=== PATIENT | female | born 2000 | race Caucasian/White ===

== ENCOUNTER 2025-03-02 09:55 | Outpatient (AMB) | payer OTHER, SELFPAY ==
--- NOTE | 2025-03-02 09:57 | A.OFFPC_ITS ---
Vital Signs 03/02/25 10:02 Height 5 ft 7 in Weight 176 lb 4 oz BMI 27.6 BP 102/68 Blood Pressure Location Lt brachial Position Sitting Respiration 12 Pulse 69 Pulse Source Pulse Oximeter Temp 97.3 F Temp Source Oral Pulse Oximetry (%) 99 Oxygen Delivery Method Room Air Intake Visit Reasons: Est. Care Intake Note: New patient to establish care Arcade Attendant Required: No Allergies No Known Allergies Allergy (Verified 03/02/25 10:13) Medication List - Last Reconciled 03/02/25 by JOSIE Onofre-YUE docosahexaenoic acid ( DHA) mg PO Tobacco use date assessed: 03/02/25 Dental Screening Dental Screen Date: 03/02/25 Did you have a dental visit in the last 12 months?: Yes Did you have a dental problem in the last 6 months where you did not have access to dental care?: No Was dental information given to patient?: Patient has dentist HPI HPI Comments History of Present Illness Details 24 y/o F with Social: 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 Health Maintenance Tdap 2020 flu Pap - CAMPAIGN MANAGEMENT SPECIALIST [facility] - Dr Yanez Here today to est care and for a CPE No medical records available to me. Previous PCP was Manuel c/o skin tags on trunk. - Reports recent increase and spread of skin tags, with a notable incident of one skin tag bleeding after being grabbed during . Would like to see Derm - Vision has slightly worsened over the past two years, noted primarily when driving at night, and was initially diagnosed five years ago in [facility]. - Experiences a sensation of an echo in the right ear, occurring during jaw movement,started in the last week or 2. Short lived. No pain. - First noticed a plantar wart on the le ft foot since her first , with additional small warts developing nearby recently. Would like to see Podiatry - Documented high blood press ure immediately following delivery, was managed with medication and has since resolved. No further issues. - Describes stable mood and hormonal lev els with minor crying spells, improved significantly from previous experience. - Denies gestational dm. Social History - Occupation: Dental hygienist. - Family: , two children; a 2.5-y ear-old daughter and a recently born son. - Recently on maternity leave. - Reports a supportive family environmen t, especially with her daughter's adjustment to the new sibling. - Housing: Resides in [place]. Health Maintenance - Up-to-date on vaccinations as checked during hygiene school ([id number]). - Pap smear status unknown; plans to db ck during six-week visit. Review of Systems - Skin: Reports skin tags increasing in number and size . - Eyes/Vision: Reports vision decline, s lightly blurry vision, occasional need for distance vision glasses. - Ears: Reports clicking/echoing sensati on in right ear when clinching teeth. - Cardiovascular: Denies current symptom s but reports past elevated blood pressure. - Endocrine: Denies significant mood swi ngs , minor crying spells. Physical Exam General: Well developed, well nourished, in no acute distress. Appears stated age. Head: Normocephalic, atraumatic. Eyes: Pupils are equal, round and reactive to light and accommodation. Conjunctivae are clear. Vision grossly normal, although the patient reports a slight decrease in vision over the last couple of years. Ears: TMs clear AU, EACS WNL. Nose: Patent, without discharge. Turbinates pale and edematous worse on R . Neck: Supple, no adenopathy or thyromegaly. Thyroid feels full but not tender. Breast: Edu on SBE. Patient is . Lungs: Clear to auscultation bilaterally. No rales, rhonchi or wheeze noted. Good air flow in all aparicio. Heart: Regular rate and rhythm. No murmurs, click, rubs or gallops are noted. Abdomen: Bowel sounds present in all quadrants. The abdomen is soft, nontender, with no masses or organomegaly noted. No hernias are noted. : Deferred. Reviewed recommendations for routine CAMPAIGN MANAGEMENT SPECIALIST. Pulses: Peripheral pulses are equal and palpable bilaterally. Extremities: No clubbing, cyanosis nor edema is noted. Noted plantar wart on the left foot. Neurologic: Gait and station normal. Cranial Nerves 2-12 intact. Motor strength grossly symmetrical and intact. No sensory loss. Balance normal. Skin: No rashes, ulcers, or lesions noted. Turgor is good. Skin color is good. Hair and nails are without abnormalities. Noted multiple skin tags on anterior and posterior trunk Psych: Normal eye contact, affect and mood appropriate, and normal interactions. Patient is alert and appropriate to context. Discussion Notes I thoroughly discussed the need for skin evaluation and possible removal with dermatology for the skin tags. I reviewed a referral to ophthalmology due to the patient's vision deterioration. Podiatry to examine and potentially excise the plantar wart. Explained non-emergent nature of thyroid testing, recommending postponement until six months to ensure homeostasis. Additionally, I reviewed childbirth-related blood pressure concerns, and advised for routine follow-ups. I confirmed the validity of -safe treatments for nasal allergies and set referrals to dermatology, ophthalmology, and podiatry to establish comprehensive care. Assessment and Plan 1. Skin Tags Referred for dermatology evaluation and likely excision in the future, 2. Ocular Dysfunction Referral to ophthalmology for evaluation of vision decline 3. Eustachian Tube Dysfunction Addressed as potential consequence of allergies, offered Flonase as management option. 4. Plantar Wart Podiatry referral initiated for wart excision; 5. Recent Elevated Blood Pressure in Pos tpartum Period Acknowledged previous high blood pressure, recommended routine monitoring. 6. Hormonal Changes Stable mood observed, affirmed continued observation. Patient Instructions - Follow up with dermatology for skin ta gs. - Wear glasses as needed for vision issu es. - Utilize Flonase for nasal congestion a s needed. - Schedule ophthalmology eye exam. - Set an appointment with podiatry for w art removal. - Continue monitoring blood pressure pos tpartum. - Engage in regular check-ups . - RTO 6 months for routine fu, labs 1 we ek before, sooner PRN Consent Patient was informed and verbally consented to the use of an ambient scribe for clinic note documentation during this visit. An additional 30 minutes was spent addressing the problem(s) noted at todays visit. This includes time spent before the visit reviewing the chart, time spent during the visit, and time spent after the visit on documentation reviewing laboratory results, diagnostic imaging, medications, performing a medically necessary evaluation, counseling on diagnoses, care coordination, ordering appropriate tests, ordering appropriate medications, review of tests performed by other providers, reporting test results with the patient, communication with other healthcare providers. [facility] Medical History (Updated 03/02/25 @ 14:57 by Sherry Flower, [facility]) Eczema Surgical History (Updated 03/02/25 @ 10:12 by Sebastian Moise MA) No pertinent past surgical history Family History (Updated 03/02/25 @ 10:12 by Sebastian Moise MA) Father HTN (hypertension) Social History (Updated 03/02/25 @ 10:05 by Sebastian Moise MA) Household Members: Spouse and Children Both parents involved: No Caregiver staying overnight: No Housing: House Are you a primary urgent care to a significant other at home: Yes Do you presently have visiting nurse or other home services: No 75 years or older and lives alone: No Alcohol intake: never Patient Tobacco Use Status: Never used Tobacco e-Cigarette/Vaping Use: Never Used Second Hand Smoke Exposure: No service: No Current occupational status: employed Current occupation: dental hygenist Cognitive needs: No Hearing needs: No Vision needs: No Questionnaire PHQ-9 Over the last 2 weeks, how often have you been bothered by any of the following problems? 1. Little interest or pleasure in doing things: not at all 2. Feeling down, depressed, or hopeless: not at all 3. Trouble falling or staying asleep, or sleeping too much: not at all 4. Feeling tired or having little energy: not at all 5. Poor appetite or overeating: not at all 6. Feeling bad about yourself - or that you are a failure or have let yourself or your family down: not at all 7. Trouble concentrating on things, such as reading the newspaper or watching television: not at all 8. Moving or speaking so slowly that other people could have noticed. Or the opposite - being so fidgety or restless that you have been moving around a lot more than usual: not at all 9. Thoughts that you would be better off or of hurting yourself in some way: not at all Total score: 0 Depression Screening Interpretation: Negative Depression Screening Done: Yes 78811 - PHQ-9 Billing: Yes Source: Developed by Drs. Gilbert Kelly, Radha Chauhan, Sudeep Blanco and colleagues, with an educational efren from [employer]. Thrive Questionnaire Date Thrive assessed: 03/02/25 I am a: Patient What is your living situation today?: I have a steady place to live Within the past 12 months, did the food you bought not last and you didn't have the money to get more?: Never true Within the past 12 months, did you worry whether your food would run out before you got money to buy more?: Never true Do you have trouble paying for medicines?: No Do you have trouble getting transportation to medical appointments?: No Do you have trouble paying your heating and electricity bill?: No Do you have trouble taking care of your child, family member or friend?: No Do you have trouble with day-to-day activities such as bathing, preparing meals, shopping, managing finances, etc.?: No Are you currently unemployed and looking for a job?: No Are you interested in more education?: No Please select the resources that you would like help with: None Currently or been in a relationship where the following occur: No concerns reported THRIVE Score: 0 AUDIT C Alcohol Use Questionnaire (AUDIT-C) 1. How often do you have a drink containing alcohol?: Never 3. How often do you have six or more drinks on one occasion?: Never Total Score: 0 KARELY-7 AMB Questionnaire KARELY-7 Date KARELY - 7 assessed: 03/02/25 Feeling nervous, anxious, or on edge: 0 = Not at all Not being able to stop or control worryin = Not at all Worrying too much about different things: 0 = Not at all Trouble relaxin = Not at all Being so restless that it is hard to sit still: 0 = Not at all Becoming easily annoyed or irritable: 0 = Not at all Feeling afraid as if something awful might happen: 0 = Not at all Total KARELY-7 score (0-4 normal; 5-9 mild; 10-14 moderate; 15-21 severe): 0 Source: Developed by Drs. Gilbert Kelly, Radha Chauhan, Sudeep Blanco and colleagues, with an educational efren from [employer]. KARELY-7 Assessment Billing KARELY-7 Assessment Tool: KARELY-7 Assessment 59816 Physical exam (Primary Care) Vital Signs: Last Vital Signs Temp 97.3 F 03/02/25 10:02 Pulse 69 03/02/25 10:02 Resp 12 03/02/25 10:02 BP 102/68 04/18/25 10:02 Pulse Ox 99 03/02/25 10:02 Oxygen Delivery Method Room Air 03/02/25 10:02 BMI result Body Mass Index 27.6 Tobacco/Smoking Status: Tobacco use Status Tobacco use date assessed 03/02/25 03/02/25 10:03 Patient Tobacco Use Status Never used Tobacco 03/02/25 10:05 e-Cigarette/Vaping Use Never Used 03/02/25 10:05 PHQ-9: PHQ-9 Score PHQ-9: Total score 0 03/02/25 10:13 Depression Screening Interpretation: Negative Thrive Assessment: Date of Thrive Assessment Date Thrive assessed 03/02/25 03/02/25 10:03 Currently or been in a relationship where the following occur: No concerns reported Coding Level of Care Code Est Pt Level 4 (18274) New Pt Prev Care 18-39yr(74295 Diagnoses Encounter for general adult medical examination with abnormal findings Z00.01 Blurred vision H53.8 state Z39.2 Plantar wart of left foot B07.0 Skin tag L91.8 Mother currently breast-feeding Z39.1 Encounter to establish care Z76.89 Additional Codes KARELY-7 Assessment Billing - KARELY-7 Assessment Tool: KARELY-7 Assessment 68161 ([id number]) PHQ-9 - 55569 - PHQ-9 Billing: Yes ([id number]) Assessment & Plan Assessment & Plan (1) Encounter for general adult medical examination with abnormal findings: Onset Date: ~02/2025 Code(s): Z00.01 - Encounter for general adult medical examination with abnormal findings Category: Medical (2) Blurred vision: Code(s): H53.8 - Other visual disturbances Category: Medical (3) state: Code(s): Z39.2 - Encounter for routine follow-up Category: Medical (4) Plantar wart of left foot: Code(s): B07.0 - Plantar wart Category: Medical (5) Skin tag: Code(s): L91.8 - Other hypertrophic disorders of the skin Category: Medical (6) Mother currently breast-feeding: Code(s): Z39.1 - Encounter for care and examination of lactating mother Category: Medical (7) Encounter to establish care: Code(s): Z76.89 - Persons encountering health services in other specified circumstances Plan . Orders: Orders Complete Blood Count no Diff 6 Months Z39.2 - Encounter for routine follow-up Comprehensive Met. Panel 6 Months Z39.2 - Encounter for routine follow-up Ferritin 6 Months Z39.2 - Encounter for routine follow-up Hemoglobin A1c 6 Months Z39.2 - Encounter for routine follow-up Lipid Panel 6 Months Z39.2 - Encounter for routine follow-up TSH reflex Free T4 6 Months Z39.2 - Encounter for routine follow-up Vitamin B12 and Folate 6 Months Z39.2 - Encounter for routine follow -up Vitamin D 25-OH Total 6 Months Z39.2 - Encounter for routine follow- up IRON PROFILE 6 Months Z39.2 - Encounter for routine follow-up Microalbumin, Random (w Creat) 6 Months Z39.2 - Encounter for routine follow-up Referrals Dermatology Referral L91.8 - Other hypertrophic disorders of the skin Optometry Referral H53.8 - Other visual disturbances Podiatry Referral B07.0 - Plantar wart Patient Instructions: Walk-In Care (Urgent Care): We Make it Easy Walk-in for urgent medical issues such as: ? Seasonal Allergies ? Insect Bites ? Cough ? Diarrhea ? Acute Asthma Attacks ? Back, Knee or Joint Pain ? Ear Infection ? Fever without a Rash ? Headaches ? Nausea ? [place] [facility], Rash or Skin Irritation ? Sore Throat ? Sports Physicals ? Vomiting Most insurances are accepted. Patients do not need to be part of the [facility] to seek care at the walk-in clinic. Locations [facility] , [place] [address] ? [phone] [facility] Walk-In Care in [place] provides services to ages 18 and over. Open Wednesday-Wednesday: 8 a.m. to 5 p.m. and Wednesday: 9 a.m. to 3 p.m.* *Hours may vary due to staffing availability. To confirm Walk-In Care hours in [place], please call [phone]. [address] [place] [address] ? [phone] [facility] Walk-In Care in [place] provides services to ages 12 and over. Open Wednesday-Wednesday: 8 a.m. to 5 p.m. Hours may vary due to staffing availability. To confirm Walk-In Care hours in [place], please call [phone]. LABORATORY SERVICES: [facility] Lab ? Primary Location [address] [place] [address] Wednesday through Wednesday 6:00 AM ? 5:00 PM Wednesday 7:00 AM ? 11:00 AM* [phone] The [facility] Lab is centrally located near the front entrance of the Medical Center for easy outpatient access. Convenient parking is provided for outpatients. *Hours may vary due to staffing availability. To confirm Laboratory hours for any location, please call [phone]. Offsite Location For your convenience, we offer offsite laboratory draw stations at the following locations: [address] [place] [address] ? [facility] [address], [address] [place] [address] Wednesday through Wednesday 7:30 AM ? 1:00 PM* [phone] *Hours may vary due to staffing availability. To confirm Laboratory hours for any location, please call [phone]. [place] ? [address] Wednesday through Wednesday 6:00 AM ? 3:30 PM* Wednesday 6:30 AM ? 3 PM* [phone] *Hours may vary due to staffing availability. To confirm Laboratory hours for any location, please call [phone] [place] [address] Wednesday through Wednesday 7:30 AM ? 4:00 PM* [phone] *Hours may vary due to staffing availability. To confirm Laboratory hours for any location, please call [phone] [place] [address] Wednesday through 9:00 AM ? 4:00 PM* *Hours may vary due to staffing availability. To confirm Laboratory hours for any location, please call [phone]. Appointments are not necessary. Walk-ins are welcome. Like all the departments throughout the [facility], our Lab undergoes frequent reviews to ensure the quality and accuracy of test results, and our staff takes special pride in its status as a nationally accredited facility. Patient Portal: ONE PATIENT. ONE RECORD. BETTER CARE. [facility] has a fully integrated, cutting- edge mobile electronic health information system that has revolutionized the way we care for our patients and manage our organization. This system improves communication and coordination enabling us to provide safe, higher-quality care, and an overall positive experience for staff and patients. Our first priority, as always, is to deliver the highest quality care possible. The system is running in the background supporting that priority. This portal is for all [facility] services and practices. If you are experiencing any technical difficulties with enrolling or logging into the Patient Portal please complete the [facility] Patient Portal Technical Support Form. [facility] now offers a new secure on-line interactive tool for patients to review their health information ? ?Patient Portal. This interactive web portal will enable patients and their families to take an active role in their care by providing easy, secure access to their health information via the internet. The Patient Portal provides patients with instant access to their health information, including laboratory results, medications, allergies, demographic information, visit history, and more. In addition to managing their own care, parents and health care proxies with authorized consent will appreciate the ability to access the records of those individuals for whom they provide care. Please note: if you wish to gain access (Proxy) to another patient?s portal, you will be required to come to the Medical Records Department in person at [facility]. Both the patient giving proxy access and the proxy will need to provide photo identification and complete the appropriate authorization. The Patient Portal also allows track their appointments online. The [facility] Patient Portal also saves patients time by allowing them to submit updates to their demographic and contact information prior to their visits. Portal email notifications will also alert patients to any new activity on their portal, such as test results and new appointments. In order to initially enroll in the [facility] Patient Portal, you will need to enter some required information including the following: * your [facility] Medical Record number * your personal home email address * name * date of Please note: In order to enroll in the [facility] Patient Portal, we need to have your email address on file in your electronic medical record. ?The email address needs to be specific for one person (yourself) in order for your Portal enrollment to be successful. ?You can update your email address in person with our Registration staff when you are registering for a hospital visit. ?Otherwise, you will need to come to the Health Information Management (Medical Records) Department at [facility]. ?We are open from Wednesday ? Wednesday from 7:30 a.m. ? 4:30 p.m. ?You will be required to present a photo id. Once you have successfully enrolled in the Patient Portal, you will receive a one-time user id and password for the Portal, sent to your email address. ?This will allow you to log into the Patient Portal within 99 hrs and reset your own logon id and password, and define personal security questions. ?Once your permanent login and password have been set, you can log into the [facility] Patient Portal at any time via the blue button above or from the Portal Logon button on any page of the [facility] website. [facility] encourage all of our patients to enroll in Patient Portal as it presents a valuable opportunity for patients and their families to actively participate in their care and stay healthy Welcome to [facility]. ?We look forward to working with you. Health screenings for women You should visit your health care provider from time to time, even if you are healthy. The purpose of these visits is to: Screen for medical issues Assess your risk for future medical problems Encourage a healthy lifestyle Update vaccinations and other preventive care services Help you get to know your provider in case of an illness Information Even if you feel fine, you should still see your provider for regular checkups. These visits can help you avoid problems in the future. For example, the only way to find out if you have high blood pressure is to have it checked regularly. High blood sugar and high cholesterol levels also may not have any symptoms in the early stages. A simple blood test can check for these conditions. There are specific times when you should see your provider or receive specific health screenings. The [place] Preventive Services Task Force publishes a list of recommended screenings. Below are screening guidelines for women ages 18 to 39. BLOOD PRESSURE SCREENING Your blood pressure should be checked at least once every 3 to 5 years if: Your blood pressure is in the normal range (top number less than 120 mm Hg and bottom number less than 80 mm Hg) You don't have risk factors for high blood pressure Ask your provider if you need your blood pressure checked more often if: The top number is 120 to 129 mm Hg or the bottom number is 70 to 79 mm Hg You have diabetes, heart disease, kidney problems, are overweight, or have certain other health conditions You have a first-degree relative with high blood pressure You are Black You had high blood pressure during a If the top number is 130 mm Hg or greater or the bottom number is 80 mm Hg or greater, this is considered stage 1 hypertension. Schedule an appointment with your provider to learn how you can reduce your blood pressure. Watch for blood pressure screenings in your area. Ask your provider if you can stop in to have your blood pressure checked. BREAST CANCER SCREENING Experts do not agree about the benefits of breast self-exams in finding breast cancer or saving lives. Talk to your provider about what is best for you. A screening mammogram is not recommended for most women under age 40. Your provider may discuss and recommend mammograms, MRI scans, or ultrasounds if you have an increased risk for breast cancer, such as: A mother or sister who had breast cancer at a young age (most often starting screening earlier than the age the close relative was diagnosed) You carry a high-risk genetic marker CERVICAL CANCER SCREENING Cervical cancer screening should start at age 21 years unless your provider advises otherwise. After the first test: Women ages 21 through 29 should have a Pap test every 3 years. Exoprts do not agree on whether HPV testing is recommended for this age group. Women ages 30 through 65 should be screened with either a Pap test every 3 years or the HPV test every 5 years or both tests every 5 years (called cotesting ). Women who have been treated for precancer (cervical dysplasia) should continue to have Pap tests for 20 years after treatment or until age 65, whichever is longer. If you have had your uterus and cervix removed (total hysterectomy), and you have not been diagnosed with cervical cancer or precancer (high grade cervical neoplasia), you do not need cervical cancer screening. CHOLESTEROL SCREENING Cholesterol screening should begin at: Age 45 for women with no known risk factors for coronary heart disease Age 20 for women with known risk factors for coronary heart disease Repeat cholesterol screening should take place: Every 5 years for women with normal cholesterol levels More often if changes occur in lifestyle (including weight gain and diet) More often if you have diabetes, heart disease, kidney problems, or certain other conditions DIABETES SCREENING You should be screened for diabetes starting at age 35 and then repeated every 3 years if you have no risk factors for diabetes. Screening may need to start earlier and be repeated more often if you have other risk factors for diabetes, such as: You have a first degree relative with diabetes. You are overweight or have obesity. You have high blood pressure, prediabetes, or a history of heart disease. Screening for diabetes should be done if you are planning to become and you are overweight and have other risk factors such as high blood pressure. DENTAL EXAM Go to the dentist once or twice every year for an exam and cleaning. Your dentist will evaluate if you need more frequent visits. EYE EXAM Have an eye exam every 5 to 10 years before age 40. If you have vision problems, have an eye exam every 2 years or more often if recommended by your provider. You should have an eye exam that includes an examination of your retina (back of your eye) at least every year if you have diabetes. IMMUNIZATIONS Commonly needed vaccines include: Flu shot: get one every year. COVID-19 vaccine: ask your provider what is best for you. Tetanus-diphtheria and acellular pertussis (Tdap) vaccine: have one at or after age 19 as one of your tetanus-diphtheria vaccines if you did not receive it as an adolescent. Tetanus-diphtheria: have a booster (or Tdap) every 10 years. Varicella vaccine: receive 2 doses if you never had chickenpox or the varicella vaccine. Hepatitis B vaccine: receive 2, 3, or 4 doses, depending on your exact circumstances. Measles, mumps, and rubella (MMR) vaccine: receive 1 to 2 doses if you are not already immune to MMR. Your provider can tell you if you are immune. Ask your provider about the human papillomavirus (HPV) vaccine if: You have not received the HPV vaccine in the past You have not completed the full vaccine series (you should catch up on this shot) Ask your provider if you should receive other immunizations if you have certain health problems that increase your risk for some diseases such as pneumonia. INFECTIOUS DISEASE SCREENING Women who are sexually active should be screened for chlamydia and gonorrhea up until age 25. Women 25 years and older should be screened for chlamydia and gonorrhea if at high risk. Screening for hepatitis C: All adults ages 18 to 79 should get a one-time test for hepatitis C. people should be screened at every . Screening for human immunodeficiency virus (HIV): All people ages 15 to 65 should get a one-time test for HIV. Depending on your lifestyle and medical history, you may also need to be screened for infections such as syphilis and HIV, as well as other infections. PHYSICAL EXAM All adults should visit their provider from time to time, even if they are healthy. The purpose of these visits is to: Screen for disease Assess your risk of future medical problems Encourage a healthy lifestyle Update your vaccinations and other preventive care services Maintain a relationship with a provider in case of an illness Your height, weight, and BMI should be checked at every exam. During your exam, your provider may ask you about: Depression and anxiety Diet and exercise Alcohol and tobacco use Safety issues, such as using seat belts, smoke detectors, and intimate partner violence Your medicines and risk for interactions SKIN SELF-EXAM Your provider may check your skin for signs of skin cancer, especially if you're at high risk, such as if you: Have had skin cancer before Have close relatives with skin cancer Have a weakened immune system OTHER SCREENING Talk with your provider about colon cancer screening if you have a strong family history of colon cancer or polyps, or if you have had inflammatory bowel disease or polyps yourself. Routine bone density screening of women under 40 is not recommended.
[2025-03-02 10:02] VITALS: BP 102/68; PULSE 69; RESP 12; TEMP 36.3; O2SAT 99; BMI 27.6
--- OUTSIDE RECORDS SUMMARY | 2025-03-02 10:41 | XMS_ITS | Encounter Summary ---
Author Organization [facility] Address [address] [place] [address] Care Team Providers Care Manager [employer] Sales Name Role Phone Physician, Pcp Unknown Primary Care Provider Mirtha vailable Encounter Details Date Type Department Care Team (Latest Contact Info) Description 01/17/[address] [facility] - Main Lab [address] [facility] [address] Holley Ramírez MD [address] [address] Encounter for screening for Streptococcus B; Encounter for screening for infections with a predominantly sexual mode of transmission Social History Tobacco Use Types Packs/Day Years Used Date Smoking Tobacco: Never Assessed Comments Unknown Sex and Gender Information Value Date Recorded Sex Assigned at Not on file Legal Sex Female 1:33 AM EST Gender Identity Female 02/13/2025 2:12 PM EDT Sexual Orientation Straight 02/13/2025 2: 12 PM EDT documented as of this encounter Plan of Treatment Not on file documented as of this encounter Procedures Procedure Name Priority Date/Time Associated Diagnosis Comments CHLAMYDIA TRACHOMATIS AND NEISSERIA GONORRHOEAE PCR Routine 01/17/2025 12:00 AM EST Encounter for screening for Streptococcus B Encounter for screening for infections with a predominantly sexual mode of transmission STREP B PCR Routine 01/17/2025 12:00 AM EST Encounter for screening for Streptococcus B Encounter for screening for infections with a predominantly sexual mode of transmission documented in this encounter Results * Chlamydia trachomatis and Neisseria gonorrhoeae molecular study (01/17/2025 12:00 AM EST) Neisseria gonorrhoeae PCR Negative Negative LAB MOLECULAR DIAGNOSTICS METHOD 01/19/2025 6:11 AM EST [facility] Chlamydia trachomatis PCR Negative Negative LAB MOLECULAR DIAGNOSTICS METHOD 01/19/2025 6:11 AM EST [facility] Swab Cervix uteri structure / Unknown 01/17/2025 01/17/2025 1:39 PM EST us Holley Ramírez MD LAB MICROBIOLOGY - GENER AL ORDERABLES Final Result Performing Organization Address City/[facility]/ZIP Co de Phone Number [facility] [address] [place] [address], [place] [phone] * (ABNORMAL) Strep B molecular study (01/17/2025 12:00 AM EST) Grp B Strep PCR Detected (A) Not Detected LAB MICROBIOLOGY METHOD 01/19/2025 8:40 AM EST [facility] Swab Pooled specimen from vaginal introitus and rectal swab / Unknown 01/17/2025 01/17/2025 1:39 PM EST Narrative [facility] - 01/19/2025 8:40 AM EST Group B Streptococcus Susceptibility testing is not routinely performed since this organism is predictably sensitive to Penicillin. Susceptibility testing should be performed for Penicillin Allergic women at HIGH RISK for Anaphylaxis. Should this patient ??require testing, Please contact the Microbiology Department at [phone] within 7 days of receiving this report to request susceptibility. us Holley Ramírez MD LAB BLOOD ORDERABLES Fin al Result [facility] [address] [place] [address], [place] [phone] documented in this encounter Visit Diagnoses Diagnosis Encounter for screening for Streptococcus B Encounter for screening for infections with a predominantly sexual mode of transmission documented in this encounter Care Teams Manager [employer] Sales Relationship Specialty Start Date End Date Physician, Pcp Unknown PCP - General 10/27/24 documented as of this encounter
--- OUTSIDE RECORDS SUMMARY | 2025-03-02 10:41 | XMS_ITS | Clinical Summary ---
Author Organization [address] Address [address] [place] [address] Phone Care Team Providers Care Percussion Teacher Name Role Phone Physician, Pcp Unknown Primary Care Provider Mirtha vailable Allergies No known active allergies Medications omeprazole OTC (PriLOSEC OTC) 20 mg EC tablet Take 1 tablet (20 mg total) by mouth 1 (one) time each day if needed. Do not crush, chew, or split. 02/16/20 25 Discontinu ed(Stop Taking at Discharge) Active Problems No known active problems Resolved Problems Problem Noted Date Diagnosed Date Resolved Date Venu Murcia' contraction 02/13/2025 0 02/15/2025 Encounters Date Type Department Care Team Description 02/13/2025 1:18 PM EDT - 02/15/2025 12:38 PM EDT Hospital Encounter [facility] - Maternity [address] [place] [id number] Holley Ramírez MD Vaginal delivery (Primary Dx) Discharge Disposition: Home or Self Care 01/17/2025 Lab Requisition [facility] - Main Lab [address] [place] [phone] Holley Ramírez MD Encounter for screening for Streptococcus B; Encounter for screening for infections with a predominantly sexual mode of transmission from Last 3 Months Surgical History Surgery Date Site/Laterality Comments WISDOM TOOTH EXTRACTION Social History Tobacco Use Types Packs/Day Years Used Date Smoking Tobacco: Never Smokeless Tobacco: Never Tobacco Cessation:Counseling Given: Not Answered Alcohol Use Standard Drinks/Week Comments Never 0 (1 standard drink = 0.6 oz pur e alcohol) Housing Instability Answer Date Recorde d Are you worried that in the next 2 months you may not have stable housing? No 02/13/2025 Food Access & Nutrition Answer Date Rec orded Do you have access to a vari ety of food including fruits and vegetables? Yes 02/13/2025 Access to Healthcare Answer Date Record ed Within the last 3 months, ho w many times did you visit the emergency department for your medical care? 0 02/13/2025 Health Literacy Answer Date Recorded How often do you need to hav e someone help you when you read instructions, pamphlets, or other written material from your doctor or pharmacy? Never 02/13/2025 Caregiver: How often do you need to have someone help you when you read instructions, pamphlets, or other written material from your doctor or pharmacy? Not on file 02/13/2025 Financial Risk Answer Date Recorded How hard is it for you to pa y for the very basics like food, housing, medical care, and air conditioning / heating? Not very hard 02/13/2025 Transportation Answer Date Recorded Has the lack of transportati on kept you from meetings, work, or from getting things needed for daily living? No Has the lack of transportati on kept you from medical appointments or from getting medications? No 02/13/2025 Social Isolation Answer Date Recorded How often do you feel lonely or isolated from th ose around you? Never 02/13/2025 Food Risk Answer Date Recorded Within the past 12 months we worried whether our food would run out before we got money to buy more. Never true 02/13/2025 Within the past 12 months th e food we bought just didn't last and we didn't have money to get more. Never true 02/13/2025 Dependent Care Answer Date Recorded Do you need help finding or paying for care for your loved ones. For example, childcare provider or elderly care for an older adult? No 02/13/2025 Education Answer Date Recorded Do you think completing more education or training, like finishing a GED, going to college, or learning a trade, would be helpful for you? No 02/13/2025 Employment and Income Answer Date Recor ded During the last four weeks, have you been actively looking for work? No 02/13/2025 Living Situation Answer Date Recorded What is your living situation? 0 02/13/2025 Interpersonal Safety Answer Date Record ed Physical Abuse 02/13/2025 Verbal Abuse 02/13/2025 Comments No Sex and Gender Information Value Date Recorded Sex Assigned at Not on file Legal Sex Female 1:33 AM EST Gender Identity Female 02/13/2025 2:12 PM EDT Sexual Orientation Straight 02/13/2025 2: 12 PM EDT Obstetrics History Para Term AB IAB SAB Ectopic Multiple Livin g Live Births 2 2 1 0 2 2 Date Outcome GA Total Labor Labor/2nd/3rd Weight Sex Type Anes PTL Joann A1 A5 Name Clin 2021 Para F Vag-S pont Livin g 2024 Term 40w 5d 6h 56m 6h 44m/0h 07m/0h 05m 4350 g (153.4 oz) M Vag-S pont None N Livin g 9 9 Aditya Junito matthew MD Complications:None Delivery Location:[facility] - [facility]ERN[facility]) Summary Episode Dates Number of Fetuses Estimated Date of Delivery 02/13/2025 - Present (03/02/2025) 1 02/08/2025 (set by Argenis Minor RN on 02/13/2025 based on Last Menstrual Period on 05/04/2024 (Exact Date)) Dating Summary Based On ALFONSO GA Diff Last Menstrual Period on 05/04/2024 (Exact Date) 02/08/2025 Working Overview and Plan :Szymanski sex:Male Delivery Plans Post-Delivery Plans Planned delivery method:Vaginal Circumci lynne requested:No Planned anesthesia:None Acceptable blood products:All Vitals Pregravid Weight Height TWG (As of 03/02/2025) Pregrav id BMI 1.702 m (67 ) Date GA Fund Present FHR Mvmt BP Weight Edema Alb Glu Ket Dil/ Eff/Sta 40w5d Inpatient data not displayed here. See encounter summary. Last Filed Vital Signs Vital Sign Reading Time Taken Comments Blood Pressure 125/61 02/15/2025 7:46 AM EDT Pulse 75 02/15/2025 7:46 AM EDT Temperature 36.4 ??C (97.5 ??F) 02/15/2025 7:46 AM ED T Respiratory Rate 16 02/15/2025 7:46 AM EDT Oxygen Saturation 98% 02/15/2025 7:46 AM EDT Inhaled Oxygen Concentration - - Weight 92.5 kg (204 lb) 02/13/2025 1:32 PM EDT Height 170.2 cm (5' 7 ) 02/13/2025 1:32 PM EDT Body Mass Index 31.95 02/13/2025 1:32 PM EDT Plan of Treatment Health Maintenance Due Date Last Done Comments HPV Vaccines (1 - 3-dose series) 2016 Meningococcal B Vaccine (1 o f 2 - Standard) 2017 DTaP,Tdap,and Td Vaccines (1 - Tdap) 2020 Hepatitis B Vaccines (2 of 3 - 19+ 3-dose series) 06/06/2021 05/09/2021 Cervical Cancer Screening: P ap Smear 2022 Depression Screening 10/18/2022 COVID-19 Vaccine ( - 2023-2 5 season) 2024 Influenza Vaccine (Season Ended) 2025 10/09/2022, 08/27/2021 Gonorrhea/Chlamydia Screening 01/17/2026 01/17/2025 Social Influencers of Health Screening 02/13/2026 02/13/2025 HIV Screening Completed 10/27/2024 Hepatitis C Screening Completed 10/27/2024 HIB Vaccines Aged Out No longer eligi ble based on patient's age to complete this topic Hepatitis A Vaccines Aged Out No long er eligible based on patient's age to complete this topic IPV Vaccines Aged Out No longer eligi ble based on patient's age to complete this topic MMR Vaccines Aged Out No longer eligi ble based on patient's age to complete this topic Meningococcal ACWY Vaccine Aged Out N o longer eligible based on patient's age to complete this topic Pneumococcal Vaccine: Pediatrics (0 to 5 Years) and At-Risk Patients (6 to 64 Years) Aged Out No longer eligible b ased on patient's age to complete this topic RSV Immunization Patients Under 20 months Aged Out No longer eligible b ased on patient's age to complete this topic Varicella Vaccines Aged Out No longer eligible based on patient's age to complete this topic Procedures Procedure Name Priority Date/Time Associated Diagnosis Comments EXTERNAL ULTRASOUND REPORT 02/16/2025 TREPONEMA PALLIDUM ANTIBODY WITH REFLEX TO RPR AND PARTICLE AGGLUTINATION STAT 02/13/2025 2:01 PM EDT TYPE AND SCREEN STAT 02/13/2025 2:01 PM EDT COMPLETE BLOOD COUNT STAT 02/13/2025 2:01 PM EDT STREP B PCR Routine 01/17/2025 12:00 AM EST Encounter for screening for Streptococcus B Encounter for screening for infections with a predominantly sexual mode of transmission CHLAMYDIA TRACHOMATIS AND NEISSERIA GONORRHOEAE PCR Routine 01/17/2025 12:00 AM EST Encounter for screening for Streptococcus B Encounter for screening for infections with a predominantly sexual mode of transmission HEPATITIS C ANTIBODY Routine 10/27/2024 10:27 AM EST Encounter for assessment of STD exposure Screening for diabetes mellitus HIV 1, 2 ANTIBODY, P24 ANTIGEN WITH REFLEX TO DIFFERENTIATION Routine 10/27/2024 10:27 AM EST Encounter for assessment of STD exposure Screening for diabetes mellitus from Last 3 Months or Most Recently Relevant to Health Maintenance Results * External Ultrasound Report (02/16/2025) Anatomical Region Laterality Modality Ultrasound us Provider Onbase IMG US PROCEDURES Final Resul t * Treponema pallidum antibody with reflex to RPR and particle agglutination (02/13/2025 2:01 PM EDT) T. Pallidum Antibodies Negative Negative LAB CHEMISTRY METHOD 02/13/2025 2:58 PM EDT [facility] Blood Venous blood specimen / Unknown Venipuncture / Unknown 02/13/2025 2:01 PM EDT 02/13/2025 2:05 PM EDT us Holley Ramírez MD LAB BLOOD ORDERABLES Fin al Result [facility] [address] [place] [address], * (ABNORMAL) Complete blood count (02/13/2025 2:01 PM EDT) [facility] Signature WBC 9.2 4.8 - 10.8 K/mcL LAB HEMETOLOGY METHOD 02/13/2025 2:10 PM EDT [facility] RBC 4.20 3.80 - 4.80 M/mcL LAB HEMETOLOGY METHOD 02/13/2025 2:10 PM EDT [facility] Hemoglobin 10.7(L) 11.5 - 16.0 g/dL LAB HEMETOLOGY METHOD 02/13/2025 2:10 PM EDT [facility] Hematocrit 34.7(L) 35.0 - 47.0 % LAB HEMETOLOGY METHOD 02/13/2025 2:10 PM EDT [facility] MCV 82.4 79.0 - 98.0 FL LAB HEMETOLOGY METHOD 02/13/2025 2:10 PM EDT [facility] MCH 25.4(L) 27.0 - 32.0 pcg LAB HEMETOLOGY METHOD 02/13/2025 2:10 PM EDT [facility] MCHC 30.8(L) 32.0 - 37.0 g/dL LAB HEMETOLOGY METHOD 02/13/2025 2:10 PM EDT [facility] RDW 13.5 11.0 - 15.0 % LAB HEMETOLOGY METHOD 02/13/2025 2:10 PM EDT [facility] Platelets 155 130 - 400 K/mcL LAB HEMETOLOGY METHOD 02/13/2025 2:10 PM EDT [facility] MPV 11.6(H) 7.0 - 11.0 FL LAB HEMETOLOGY METHOD 02/13/2025 2:10 PM EDT [facility] NRBC 0.2 <1.0 % LAB HEMETOLOGY METHOD 02/13/2025 2:10 PM EDT [facility] NRBC Absolute 0.02 <0.10 K/mcL LAB HEMETOLOGY METHOD 02/13/2025 2:10 PM EDT [facility] Blood Venous blood specimen / Unknown Venipuncture / Unknown 02/13/2025 2:01 PM EDT 02/13/2025 2:05 PM EDT Holley Ramírez MD LAB BLOOD ORDERABLES Fin al Result [facility] [address] [place] [address], [place] [phone] * Type and screen (02/13/2025 2:01 PM EDT) Pathologist [facility] ABO Group A 02/13/2025 2:47 PM EDT [facility] Rh Type Positive 02/13/2025 2:47 PM EDT [facility] Antibody Screen Negative 02/13/2025 2:47 PM EDT [facility] Blood Venous blood specimen / Unknown Venipuncture / Unknown 02/13/2025 2:01 PM EDT 02/13/2025 2:05 PM EDT Holley Ramírez MD LAB BLOOD BANK TEST ORDE RABLES Final Result [facility] [address] [place] [address], [place] [phone] * Chlamydia trachomatis and Neisseria gonorrhoeae molecular study (01/17/2025 12:00 AM EST) Neisseria gonorrhoeae PCR Negative Negative LAB MOLECULAR DIAGNOSTICS METHOD 01/19/2025 6:11 AM EST [facility] Chlamydia trachomatis PCR Negative Negative LAB MOLECULAR DIAGNOSTICS METHOD 01/19/2025 6:11 AM EST [facility] Swab Cervix uteri structure / Unknown 01/17/2025 01/17/2025 1:39 PM EST us Holley Ramírez MD LAB MICROBIOLOGY - GENER AL ORDERABLES Final Result [facility] [address] [place] [address], [place] [phone] * (ABNORMAL) Strep B molecular study (01/17/2025 12:00 AM EST) [facility] Grp B Strep PCR Detected (A) Not Detected LAB MICROBIOLOGY METHOD 01/19/2025 8:40 AM EST [facility] Swab Pooled specimen from vaginal introitus and rectal swab / Unknown 01/17/2025 01/17/2025 1:39 PM EST Narrative [facility] - 01/19/2025 8:40 AM EST Group B Streptococcus Susceptibility testing is not routinely performed since this organism is predictably sensitive to Penicillin. Susceptibility testing should be performed for Penicillin Allergic women at HIGH RISK for Anaphylaxis. Should this patient ??require testing, Please contact the Microbiology Department at [phone] within 7 days of receiving this report to request susceptibility. us Holley Ramírez MD LAB BLOOD ORDERABLES Fin al Result [facility] [address] [place] [address], [place] [phone] * Hepatitis C antibody (10/27/2024 10:27 AM EST) [facility] Hepatitis C Antibody Negative Negative LAB CHEMISTRY METHOD 10/27/2024 12:39 PM EST [facility] Blood Venous blood specimen / Unknown Venipuncture / Unknown 10/27/2024 10:27 AM EST 10/27/2024 11:13 AM EST us Brennan Yanez MD LAB BLOOD ORDERABLES Final Res ult Performing Organization Address [place]/[facility]/ZIP Co de Phone Number [facility] [address] [place] [address], [place] [phone] * HIV 1,2 antibody, p24 antigen with reflex to differentiation (10/27/2024 10:27 AM EST) [facility] HIV Combo AB/AG Negative Negative LAB CHEMISTRY METHOD 10/27/2024 12:39 PM EST [facility] Blood Venous blood specimen / Unknown Venipuncture / Unknown 10/27/2024 10:27 AM EST 10/27/2024 11:13 AM EST Narrative [facility] - 10/27/2024 12:39 PM EST This assay is a 4th generation assay allowing for earlier detection of HIV infection by detecting the presence of the HIV-1 p24 antigen as well as the traditional antibodies to HIV type 1 (including group O) and type 2. ??Use of a 4th generation assay is the current CDC recommendation for HIV screening. us Brennan Yanez MD LAB BLOOD ORDERABLES Final Res ult Performing Organization Address [place] Co de Phone Number [facility] [address] [place] [address], [place] [phone] from Last 3 Months or Most Recently Relevant to Health Maintenance Insurance [facility] [employer] [facility] Advance Directives * Full Code - Confirmed (Latest Code Status on File) Date Activated Date Inactivated Comments 02/13/2025 1:54 PM 02/15/2025 2:43 PM This code stat us was ascertained in the following way: Code status discussion: discussion with patient To update the patient's code status, place a code status order. Do not modify or discontinue any currently active code status orders. Care Teams Percussion Teacher Relationship Specialty Start Date End Date Physician, Pcp Unknown PCP - General 10/27/24
== END 2025-03-02 10:43 | disposition home or self-care (01) ==
LOC: HO.HMCFM 09:56
PROVIDERS: PCP Nurse Practitioner Family; Visit Provider Nurse Practitioner Family
DX: Z00.01 Encounter for general adult medical examination with abnormal findings (principal); H53.8 Other visual disturbances; B07.0 Plantar wart; L91.8 Other hypertrophic disorders of the skin; Z39.1 Encounter for care and examination of lactating mother; Z76.89 Persons encountering health services in other specified circumstances

== ENCOUNTER → 2025-03-02 09:55 | Outpatient (BNVA) | payer OTHER, SELFPAY | PROVIDERS: PCP Nurse Practitioner Family; Visit Provider Nurse Practitioner Family | DX: Z00.01 Encounter for general adult medical examination with abnormal findings (principal); Z76.89 Persons encountering health services in other specified circumstances; H53.8 Other visual disturbances; B07.0 Plantar wart; L91.8 Other hypertrophic disorders of the skin | CPT/HCPCS: 96127; 99202; 99385 ==

== ENCOUNTER 2025-04-04 14:43 | Outpatient (AMB) | payer OTHER, SELFPAY ==
--- NOTE | 2025-04-04 14:50 | AM.OFFWIN_ITS ---
Intake Vital Signs 04/04/25 14:53 Weight 174 lb BP 118/70 Blood Pressure Location Lt brachial Position Sitting Pulse 72 Pulse Source Pulse Oximeter Temp 98 F Temp Source Oral Pulse Oximetry (%) 98 Oxygen Delivery Method Room Air Intake Visit Reasons: EP-sore throat Intake Note: Patient here for sore throat and headache that has been present since Wednesday. Patient Tobacco Use Status: Never used Tobacco Allergies No Known Allergies Allergy (Verified 04/04/25 14:53) Do you need a note to return to daycare/school/sports/work: No HPI HPI Comments History of Present Illness Details History - The patient is a 25-year-old female pr esenting with a sore throat and left ear pain. - The sore throat began two days ago and has progressively worsened, unresponsive to home treatments like ice cream, rinses, and warm tea with honey. - She experiences difficulty sleeping, a ttributes discomfort to swollen lymph nodes, and denies cough or head congestion. - Ear pain is notable on the left, with an observed white spot on the left tonsil. 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 - No known exposure to strep throat or s imilar infections. - The patient is , denies a ny chance of Physical Exam General: Cooperative, healthy appearing, comfortable and no acute distress Orientation/consciousness: Patient oriented x3 Limitations: No limitations Head: Normal to inspection Ears: Hearing grossly normal bilaterally, external ears normal and TM's normal bilaterally Nose: Normal external nose present, Normal nares present and No nasal discharge present Face and sinus: Normal facial exam and Yes sinuses nontender Mouth: Normal oral and palatal mucosa present and moist mucous membranes Throat: left tonsil with spots and edema and erythema, edema and erythema on right tonisl, uvula midline. Posterior oropharynx erythema, no cobblestoning Eyes: Appearance normal, both eyes and all related structures Neck: Normal visual inspection Respiratory: Normal respiratory effort, able to speak in complete sentences, No cough, no respiratory distress, not tachypneic, no tripod positioning and no use of accessory muscles Skin: No rashes or lesions noted Neuro: Patient oriented x3 Extremities: Normal to inspection and Yes no clubbing, cyanosis or edema PFSH Medical History (Updated 04/04/25 @ 15:28 by Hodan Camargo PA-C) Eczema Surgical History (Updated 03/02/25 @ 10:12 by Sebastian Moise MA) No pertinent past surgical history Family History (Updated 03/02/25 @ 10:12 by Sebastian Moise MA) Father HTN (hypertension) Social History (Updated 03/02/25 @ 10:05 by Sebastian Moise MA) Household Members: Spouse and Children Both parents involved: No Caregiver staying overnight: No Housing: House Are you a primary post acute care registered nurse to a significant other at home: Yes Do you presently have visiting nurse or other home services: No 75 years or older and lives alone: No Alcohol intake: never Patient Tobacco Use Status: Never used Tobacco e-Cigarette/Vaping Use: Never Used Second Hand Smoke Exposure: No service: No Current occupational status: employed Current occupation: dental hygenist Cognitive needs: No Hearing needs: No Vision needs: No Review of Systems Const All systems reviewed & are unremarkable except as noted in HPI and below Physical Exam Vital Signs: Last Vital Signs Temp 98 F 04/04/25 14:53 Pulse 72 04/04/25 14:53 BP 118/70 04/04/25 14:53 Pulse Ox 98 04/04/25 14:53 Oxygen Delivery Method Room Air 04/04/25 14:53 Results AMB Rapid Strep AMB Rapid Strep Negative Last Edit by VA Hernandez on 04/04/25 15:08 Results Reviewed Results Reviewed: Laboratory Last Values Strep Scn Rapid Clinic Negative 04/04/25 15:07 Assessment & Plan Assessment & Plan (1) Strep pharyngitis: Code(s): J02.0 - Streptococcal pharyngitis Plan: Vital signs are stable, patient well-appearing and physical exam remarkable for left tonsillar exudates. Centor Score is 3 points which is a 28-35% probability of strep pharyngitis, therefore I prescribed Amoxicillin for 10 days, twice daily, ensuring its safety for mothers to avoid complications like rheumatic fever from untreated strep. Based on clinical symptoms, treatment is warranted. It's imperative to prevent possible severe complications. Pain management and inflammation are addressed with Ibuprofen 600 mg every six hours as needed, alongside recommended warm saltwater gargles. The prescription is to be filled at [facility] on [facility]. The patient is instructed to monitor symptoms, and she declined any need for a work note. Patient was informed and verbally consented to the use of an ambient scribe for clinic note documentation during this visit Orders: Orders AMB Rapid Strep Screen Today Z13.9 - Encounter for screening, unspecified Medications: New amoxicillin 500 mg PO Q12H 20 tabs 0RF Coding Level of Care Code Est Pt Level 3 (30102) Diagnoses Strep pharyngitis J02.0
--- OUTSIDE RECORDS SUMMARY | 2025-04-04 14:50 | XMS_ITS | Clinical Summary ---
Author Organization 299 [facility] Address [address] [place] [address] Phone Care Team Providers Care Compress Trucker Name Role Phone Physician, Pcp Unknown Primary Care Provider Mirtha vailable Allergies No known active allergies Medications No known medications Active Problems No known active problems Resolved Problems Problem Noted Date Diagnosed Date Resolved Date Wilbarger Murcia' contraction 02/13/2025 0 02/15/2025 Encounters Date Type Department Care Team Description 02/13/2025 1:18 PM EDT - 02/15/2025 12:38 PM EDT Hospital Encounter [facility] - [facility] [address] [place] [phone] Holley Ramírez MD Vaginal delivery (Primary Dx) Discharge Disposition: Home or Self Care 01/17/2025 Lab Requisition [facility] - Main Lab [address] [place] [phone] Holley Ramírez MD Encounter for screening for [...] Record ed Within the last 3 months, eusebio snider many times did you visit the emergency [...] care for your loved ones. For example, child development associate teacher or elderly care for an older adult? [...] 9 Aditya Junito matthew MD Complications:None Delivery Location:[facility] - MATERNITY) Summary Episode Dates Number of Fetuses Estimated Date of Delivery 02/13/2025 - Present (04/04/2025) 1 02/08/2025 (set by Argenis Minor RN on 02/13/2025 based on Last Menstrual Period on 05/04/2024 (Exact Date)) Dating Summary Based On ALFONSO GA Diff Last Menstrual Period on 05/04/2024 (Exact Date) 02/08/2025 Working Overview and Plan :Szymanski sex:Male Delivery Plans Post-Delivery Plans Planned delivery method:Vaginal Circumci lynne requested:No Planned anesthesia:None Acceptable blood products:All Vitals Pregravid Weight Height TWG (As of 04/04/2025) Pregrav id BMI 1.702 m (67 ) [...] 02/13/2025 1:32 PM EDT Plan of Treatment Upcoming Encounters Date Type Department Care Team (Late st Contact Info) Description 06/13/2025 1:45 PM EDT Consult Orthopedic Surgery - [place] [address] [phone] Bran Romano, DPRony [address] [address] Health Maintenance Due Date Last Done Comments HPV Vaccines (1 - 3-dose series) 2016 DTaP,Tdap,and Td Vaccines (1 - Tdap) 2020 Hepatitis B Vaccines (2 of 3 - 19+ 3-dose series) 06/06/2021 05/09/2021 Cervical Cancer Screening: P ap Smear 2022 Depression Screening 10/18/2022 COVID-19 Vaccine (2023-2 5 season) 2024 Influenza Vaccine (Season Ended) [...] patient's age to complete this topic Meningococcal B Vaccine Aged Out No l onger eligible based on patient's age to complete [...] Region Laterality Modality Ultrasound us Provider Onbase MD ALEX US PROCEDURES Final Resul t * Treponema pallidum antibody with reflex to RPR and particle agglutination (02/13/2025 2:01 PM EDT) T. Pallidum Antibodies Negative Negative LAB CHEMISTRY METHOD 02/13/2025 2:58 PM EDT [facility] Blood Venous blood specimen / Unknown Venipuncture / Unknown 02/13/2025 2:01 PM EDT 02/13/2025 2:05 PM EDT us Holley Ramírez MD LAB BLOOD ORDERABLES Fin al Result [facility] [address] [place] [address], * (ABNORMAL) Complete blood count (02/13/2025 2:01 PM EDT) WBC 9.2 4.8 - 10.8 K/mcL LAB HEMETOLOGY METHOD 02/13/2025 2:10 PM EDT [facility] RBC 4.20 3.80 - 4.80 M/mcL LAB HEMETOLOGY METHOD 02/13/2025 2:10 PM EDT [facility] Hemoglobin 10.7(L) 11.5 - 16.0 g/dL LAB HEMETOLOGY METHOD 02/13/2025 2:10 PM EDT [facility] Hematocrit 34.7(L) 35.0 - 47.0 % LAB HEMETOLOGY METHOD 02/13/2025 2:10 PM EDT [facility] MCV 82.4 79.0 - 98.0 FL LAB HEMETOLOGY METHOD 02/13/2025 2:10 PM EDT [facility] MCH 25.4(L) 27.0 - 32.0 pcg LAB HEMETOLOGY METHOD 02/13/2025 2:10 PM EDT [facility] MCHC 30.8(L) 32.0 - 37.0 g/dL LAB HEMETOLOGY METHOD 02/13/2025 2:10 PM EDT [facility] RDW 13.5 11.0 - 15.0 % LAB HEMETOLOGY METHOD 02/13/2025 2:10 PM EDT [facility] Platelets 155 130 - 400 K/mcL LAB HEMETOLOGY METHOD 02/13/2025 2:10 PM EDT [facility] MPV 11.6(H) 7.0 - 11.0 FL LAB HEMETOLOGY METHOD 02/13/2025 2:10 PM EDT [facility] NRBC 0.2 <1.0 % LAB HEMETOLOGY METHOD 02/13/2025 2:10 PM EDT [facility] NRBC Absolute 0.02 <0.10 K/mcL LAB HEMETOLOGY METHOD 02/13/2025 2:10 PM EDT [facility] Blood Venous blood specimen / Unknown Venipuncture / Unknown 02/13/2025 2:01 PM EDT 02/13/2025 2:05 PM EDT us Holley Ramírez MD LAB BLOOD ORDERABLES Fin al Result Performing Organization Address [facility]/ZIP Co de Phone Number [facility] [address] [place] [address], [place] [phone] * Type and screen (02/13/2025 2:01 PM EDT) Pathologist [facility]BO Group A 02/13/2025 2:47 PM EDT [facility] Rh Type Positive 02/13/2025 2:47 PM EDT [facility] Antibody Screen Negative 02/13/2025 2:47 PM EDT [facility] Blood Venous blood specimen / Unknown Venipuncture / Unknown 02/13/2025 2:01 PM EDT 02/13/2025 2:05 PM EDT us Holley Ramírez MD LAB BLOOD BANK TEST ORDE RABLES Final Result Performing Organization Address City/[facility]/ZIP Co de Phone Number [facility] [address] [place] [address], [place] [phone] * Chlamydia trachomatis and Neisseria gonorrhoeae molecular study (01/17/2025 12:00 AM EST) Neisseria gonorrhoeae PCR Negative Negative LAB MOLECULAR DIAGNOSTICS METHOD 01/19/2025 6:11 AM EST [facility] Chlamydia trachomatis PCR Negative Negative LAB MOLECULAR DIAGNOSTICS METHOD 01/19/2025 6:11 AM EST [facility] Swab Cervix uteri structure / Unknown 01/17/2025 01/17/2025 1:39 PM EST Holley Ramírez MD LAB MICROBIOLOGY - GENER AL ORDERABLES Final Result Performing Organization Address [facility]/ZIP Co de Phone Number [facility] [address] [place] [address], [place] [phone] * (ABNORMAL) Strep B molecular study (01/17/2025 12:00 AM EST) [facility]p B Strep PCR Detected (A) Not Detected LAB MICROBIOLOGY METHOD 01/19/2025 8:40 AM EST [facility] Swab Pooled specimen from vaginal introitus and rectal swab / Unknown 01/17/2025 01/17/2025 1:39 PM EST Narrative [facility] - 01/19/2025 8:40 AM EST Group B Streptococcus Susceptibility testing is not routinely performed since this organism is predictably sensitive to Penicillin. Susceptibility testing should be performed for Penicillin Allergic women at HIGH RISK for Anaphylaxis. Should this patient ??require testing, Please contact the Microbiology Department at [phone] within 7 days of receiving this report to request susceptibility. Holley Ramírez MD LAB BLOOD ORDERABLES Fin al Result Performing Organization Address [facility]/ZIP Co de Phone Number [facility] [address] [place] [address], [place] [phone] * Hepatitis C antibody (10/27/2024 10:27 AM EST) [facility] Hepatitis C Antibody Negative Negative LAB CHEMISTRY METHOD 10/27/2024 12:39 PM EST [facility] Blood Venous blood specimen / Unknown Venipuncture / Unknown 10/27/2024 10:27 AM EST 10/27/2024 11:13 AM EST us Brennan Yanez MD LAB BLOOD ORDERABLES Final Res ult Performing Organization Address [facility]/ZIP Co de Phone Number [facility] [address] [place] [address], [place] [phone] * HIV 1,2 antibody, p24 antigen with reflex to differentiation (10/27/2024 10:27 AM EST) HIV Combo AB/AG Negative Negative LAB CHEMISTRY METHOD 10/27/2024 12:39 PM EST [facility] Blood Venous blood specimen / Unknown Venipuncture / Unknown 10/27/2024 10:27 AM EST 10/27/2024 11:13 AM EST Narrative [facility] - 10/27/2024 12:39 PM EST [...] ORDERABLES Final Res ult Performing Organization Address City/[facility]/ZIP Co de Phone Number [facility] [address] [place] [address], [place] [phone] from Last 3 Months or Most Recently Relevant to Health Maintenance Insurance [facility] Advance Directives * Full Code [...] currently active code status orders. Care Teams Compress Trucker Relationship Specialty Start Date End Date Physician, Pcp Unknown PCP - General 10/27/24
--- OUTSIDE RECORDS SUMMARY | 2025-04-04 14:50 | XMS_ITS | Encounter Summary ---
Author Organization [facility] Address [address] [place] [address] Care Team Providers Care Dip Guider Stoves Name Role Phone Physician, Pcp Unknown Primary Care Provider Mirtha vailable Encounter Details Date Type Department Care Team (Latest Contact Info) Description 01/17/2025 Lab Requisition [facility] - Main Lab 299 [facility] [place] [address] Holley Ramírez MD 299 [facility] [address] [place] [phone] Encounter for screening for Streptococcus B; Encounter [...] as of this encounter Plan of Treatment Upcoming Encounters Date Type Department Care Team (Late st Contact Info) Description 06/13/2025 1:45 PM EDT Consult Orthopedic Surgery - [place] 250 175 [facility] [address] [place] [phone] Bran Romano DPM 175 [facility] [address] [place] [address] documented as of this encounter Procedures Procedure [...] gonorrhoeae molecular study (01/17/2025 12:00 AM EST) Pathologist [facility] Neisseria gonorrhoeae PCR Negative Negative LAB MOLECULAR DIAGNOSTICS METHOD 01/19/2025 6:11 AM EST [facility] Chlamydia trachomatis PCR Negative Negative LAB MOLECULAR DIAGNOSTICS METHOD 01/19/2025 6:11 AM EST [facility] Swab Cervix uteri structure / Unknown 01/17/2025 01/17/2025 1:39 PM EST us Holley Ramírez MD LAB MICROBIOLOGY - GENER AL ORDERABLES Final Result Performing Organization Address [facility] Co de Phone Number [facility] [address] [place] [address], * (ABNORMAL) Strep B molecular study (01/17/2025 12:00 AM EST) [facility] Grp B Strep PCR Detected (A) Not Detected LAB MICROBIOLOGY METHOD 01/19/2025 8:40 AM EST [facility] Swab Pooled specimen from vaginal introitus and rectal swab / Unknown 01/17/2025 01/17/2025 1:39 PM EST Narrative [facility] - 01/19/2025 8:40 AM EST Group B Streptococcus Susceptibility testing is not routinely performed since this organism is predictably sensitive to Penicillin. Susceptibility testing should be performed for Penicillin Allergic women at HIGH RISK for Anaphylaxis. Should this patient ??require testing, Please contact the Microbiology Department at [phone] within 7 days of receiving this report to request susceptibility. us Holley Ramírez MD LAB BLOOD ORDERABLES Fin al Result Performing Organization Address City/[facility]/ZIP Co de Phone Number [facility] [address] [place] [address], documented in this encounter Visit Diagnoses Diagnosis Encounter for screening for Streptococcus B Encounter for screening for infections with a predominantly sexual mode of transmission documented in this encounter Care Teams Dip Guider Stoves Relationship Specialty Start Date End Date Physician, Pcp Unknown PCP - General 10/27/24 documented as of this encounter
[2025-04-04 14:53] VITALS: BP 118/70; PULSE 72; TEMP 36.6; O2SAT 98
== END 2025-04-04 15:48 | disposition home or self-care (01) ==
PROVIDERS: PCP Nurse Practitioner Family; Visit Provider Physician Assistant
DX: Z13.9 Encounter for screening, unspecified (principal); J02.0 Streptococcal pharyngitis

== ENCOUNTER → 2025-04-04 14:43 | Outpatient (BNVA) | payer OTHER, SELFPAY | PROVIDERS: PCP Nurse Practitioner Family; Visit Provider Physician Assistant | DX: J02.0 Streptococcal pharyngitis (principal) | CPT/HCPCS: 87880; 99212 ==

== ENCOUNTER 2025-09-05 09:41 | Outpatient (REF) | payer OTHER, SELFPAY ==
--- OUTSIDE RECORDS SUMMARY | 2025-09-05 11:20 | XMS_ITS | Encounter Summary ---
Author Organization [facility] Address [address] [place] [address] Care Team Providers Care Sports Manager Name Role Phone Physician, Pcp Unknown Primary Care Provider Mirtha vailable Encounter Details Date Type Department Care Team (Latest Contact Info) Description 01/17/[address] [facility] - Main Lab 299 [facility] [place] [address] Holley Ramírez MD [address] [phone] Encounter for screening for Streptococcus [...] MOLECULAR DIAGNOSTICS METHOD 01/19/2025 6:11 AM EST [facility] Chlamydia trachomatis PCR Negative Negative LAB MOLECULAR DIAGNOSTICS METHOD 01/19/2025 6:11 AM EST [facility] Swab Cervix uteri structure / Unknown 01/17/2025 01/17/2025 1:39 PM EST Holley Ramírez MD LAB MICROBIOLOGY - GENER AL ORDERABLES Final Result Performing Organization Address City/[facility] [address]/ZIP Co de Phone Number [facility] [address] [place] [address], [place] [phone] * (ABNORMAL) Strep B molecular study (01/17/2025 12:00 AM EST) Grp B Strep PCR Detected (A) Not Detected LAB MICROBIOLOGY METHOD 01/19/2025 8:40 AM EST [facility] Swab Pooled specimen from vaginal introitus and rectal swab / Unknown 01/17/2025 01/17/2025 1:39 PM EST Narrative [facility] - 01/19/2025 8:40 AM EST Group B Streptococcus Susceptibility testing is not routinely performed since this organism is predictably sensitive to Penicillin. Susceptibility testing should be performed for Penicillin Allergic women at HIGH RISK for Anaphylaxis. Should this patient require testing, Please contact the Microbiology Department at [phone] within 7 days of receiving this report to request susceptibility. us Holley Ramírez MD LAB BLOOD ORDERABLES Fin al Result [facility] [address] [place] [address], [place] [phone] documented in this encounter Visit Diagnoses Diagnosis Encounter for screening for Streptococcus B Encounter for screening for infections with a predominantly sexual mode of transmission documented in this encounter Care Teams Sports Manager Relationship Specialty Start Date End Date Physician, Pcp Unknown PCP - General 10/27/24 documented as of this encounter
--- OUTSIDE RECORDS SUMMARY | 2025-09-05 11:20 | XMS_ITS | Clinical Summary ---
Author Organization 299 [facility] Address [address] [place] [address] Phone Care Team Providers Care Shingles Roofer Name Role Phone Physician, Pcp Unknown Primary Care Provider Mirtha vailable Allergies No known active allergies Medications No known medications Active Problems No known active problems Resolved Problems Problem Noted Date Diagnosed Date Resolved Date Venu Murcia' contraction 02/13/2025 0 02/15/2025 Encounters Date Type Department Care Team Description 07/04/2025 1:30 PM EDT Office Visit Orthopedic Surgery [facility] [address] [phone] Bran Romano DPRony Metatarsalgia of left foot (Primary Dx); Plantar warts 06/13/2025 1:45 PM EDT Consult Orthopedic Surgery [facility] [address] [phone] Bran Romano DPRony Metatarsalgia of left foot (Primary Dx); Plantar warts from Last 3 Months Surgical History Surgery [...] for your loved ones. For example, child care associate teacher or elderly care for an [...] Date Recorded What is your living situation? Unrecognized valu e 02/13/2025 Interpersonal Safety Answer Date Record ed Physical Abuse Unrecognized value 02/13/2025 Verbal Abuse Unrecognized value 02/13/2025 Comments No Sex and Gender Information [...] 9 Aditya Junito matthew MD Complications:None Delivery Location:[facility] ([facility] - [facility]) Last Filed Vital Signs Vital Sign Reading Time Taken Comments Blood Pressure 125/61 02/15/2025 7:46 AM EDT Pulse 75 02/15/2025 7:46 AM EDT Temperature 36.4 C (97.5 F) 02/15/2025 7:46 AM EDT Respiratory Rate 16 02/15/2025 7:46 AM EDT [...] Screening: P ap Smear 2022 Depression Screening 11/15/2024 COVID-19 Vaccine (1 - 2023-2 5 season) 2025 Influenza Vaccine (#1) 2025 2, 08/27/2021 Gonorrhea/Chlamydia Screening 01/17/2026 01/17/2025 Social Influencers of Health Screening 02/13/2026 02/13/2025 RSV Immunization Adult Patients (1 - 1-dose 75+ series) 2076 HIV Screening Completed 10/27/2024 Hepatitis C Screening [...] 5 Years) and At-Risk Patients (6 to 49 Years) Aged Out No longer eligible b [...] Recently Relevant to Health Maintenance Results * Chlamydia trachomatis and Neisseria gonorrhoeae molecular study (01/17/2025 12:00 AM EST) Neisseria gonorrhoeae PCR Negative Negative LAB MOLECULAR DIAGNOSTICS METHOD 01/19/2025 6:11 AM [facility] Chlamydia trachomatis PCR Negative Negative LAB MOLECULAR DIAGNOSTICS METHOD 01/19/2025 6:11 AM [facility] Swab Cervix uteri structure / Unknown 01/17/2025 01/17/2025 1:39 PM EST us Holley Ramírez MD LAB MICROBIOLOGY - GENER AL ORDERABLES Final Result Performing Organization Address [facility]/ZIP Co de Phone Number [facility] [address] [place] [address], [place] [phone] * Hepatitis C antibody (10/27/2024 10:27 AM EST) Hepatitis C Antibody Negative Negative LAB CHEMISTRY METHOD 10/27/2024 12:39 PM EST [facility] Blood Venous blood specimen / Unknown Venipuncture / Unknown 10/27/2024 10:27 AM EST 10/27/2024 11:13 AM EST us Brennan Yanez MD LAB BLOOD ORDERABLES Final Res ult Performing Organization Address [facility] de Phone Number [facility] [address] [place] [address], [place] [phone] * HIV 1,2 antibody, p24 antigen with reflex to differentiation (10/27/2024 10:27 AM EST) [facility] HIV Combo AB/AG Negative Negative LAB CHEMISTRY METHOD 10/27/2024 12:39 PM EST [facility] Blood Venous blood specimen / Unknown Venipuncture / Unknown 10/27/2024 10:27 AM EST 10/27/2024 11:13 AM EST Narrative [facility] - 10/27/2024 12:39 PM EST This assay is a 4th generation assay allowing for earlier detection of HIV infection by detecting the presence of the HIV-1 p24 antigen as well as the traditional antibodies to HIV type 1 (including group O) and type 2. Use of a 4th generation assay is the current CDC recommendation for HIV screening. us Brennan Yanez MD LAB BLOOD ORDERABLES Final Res ult Performing Organization Address City/[facility]/ZIP Co de Phone Number [facility] [address] [place] [address], [place] [phone] from Last 3 Months or Most Recently Relevant to Health Maintenance Insurance [facility] HEALTH PLAN MEDICAID - [place] Advance Directives * Full Code - Confirmed (Latest Code Status on File) Date Activated Date Inactivated Comments 02/13/2025 1:54 PM 02/15/2025 2:43 PM This code stat us was ascertained in the following way: Code status discussion: discussion with patient To update the patient's code status, place a code status order. Do not modify or discontinue any currently active code status orders. Care Teams Shingles Roofer Relationship Specialty Start Date End Date Physician, Pcp Unknown PCP - General 10/27/24
[2025-09-05 11:28] LABS: NRBC Abs Auto 0.000 X10*3/uL (0.0-0.012); NRBC Pct Auto 0.0 /100WBC (0.0-0.2)
[2025-09-05 12:10] LABS: Alanine Aminotransferase 15 U/L (0-31); Albumin Level 4.3 g/dL (3.5-5.0); Alkaline Phosphatase 62 U/L (39-117); Anion Gap 9 (12-20); Aspartate Amino Transferase 23 U/L (5-31); Blood Urea Nitrogen 10 mg/dL (9-16); Calcium 9.0 mg/dL (8.4-10.2); Carbon Dioxide 26 mmol/L (22-29); Chloride 110 mmol/L (96-108); Cholesterol 156 mg/dL (<200); Estimated Glomerular Filt Rate > 60; Ferritin 6 ng/mL (10-122); HDL Cholesterol 71 mg/dL (>40); Iron 54 mcg/dL (30-160); Percent Iron Saturation 18 % (15-50); Potassium 3.9 mmol/L (3.3-5.1); Sodium 141 mmol/L (135-145); Total Iron Binding Capacity 295 mcg/dL (228-428); Total Protein 7.0 g/dL (6.5-8.0); Triglycerides 49 mg/dL (<150); Unsaturated Iron Binding 241 ug/dL
[2025-09-05 12:18] LABS: Folate 13.7 ng/mL (> or = 4.0); Vitamin B12 638 pg/mL (200-900)
[2025-09-05 12:19] LABS: Red Blood Count 4.75 X10*6/uL (4.20-5.50); White Blood Count 4.4 X10*3/uL (4.8-10.8)
[2025-09-05 12:20] LABS: Hematocrit 39.6 % (37.0-47.0); Hemoglobin 12.8 g/dl (12.0-16.0)
[2025-09-05 12:21] LABS: Mean Corpuscular HGB Conc 32.3 g/dl (31.0-35.0); Mean Corpuscular Hemoglobin 26.9 pg (27.0-33.0); Mean Corpuscular Volume 83.4 fL (80.0-98.0)
[2025-09-05 12:22] LABS: Platelet Count 193 X10*3/uL (160-400)
[2025-09-05 14:52] LABS: Microalbum/Creatinine Ratio Ur 18.2 ug/mg cr (<30)
== END 2025-09-05 09:42 | disposition home or self-care (01) ==
LOC: HO.WFDLDS 09:41
PROVIDERS: Visit Provider Nurse Practitioner Family
DX: Z39.2 Encounter for routine postpartum follow-up (principal)
CPT/HCPCS: 36415; 80053; 80061; 82043; 82306; 82570; 82607; 82728; 82746; 83036; 83540; 84443; 85027

== ENCOUNTER 2025-09-07 09:47 | Outpatient (AMB) | payer OTHER, SELFPAY ==
[2025-09-07 09:49] VITALS: BP 120/78; PULSE 73; TEMP 36.8; O2SAT 97; BMI 28.3
--- NOTE | 2025-09-07 09:49 | A.OFFPC_ITS ---
Vital Signs 09/07/25 09:49 Height 5 ft 7 in Weight 181 lb BMI 28.3 BP 120/78 Blood Pressure Location Lt brachial Position Sitting Pulse 73 Pulse Source Pulse Oximeter Temp 98.2 F Temp Source Oral Pulse Oximetry (%) 97 Oxygen Delivery Method Room Air Intake Visit Reasons: 6 mo routine fu, labs 1 week before Intake Note: pt declined flu today Registered Nurse Maternal Child Required: No Accompanied by: Self / Same As Patient Allergies No Known Allergies Allergy (Verified 09/07/25 09:49) Medication List - Last Reconciled 09/07/25 [facility] No Known Home Meds Tobacco use date assessed: 03/02/25 Dental Screening Dental Screen Date: 03/02/25 HPI HPI Comments History of Present Illness Details History of Present Illness 25 y/o F with Iron def anemia Social: 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 Health Maintenance Tdap 2020 flu Pap - [employer] [employer] - Dr Renata Nicole needs to make an appt Podiatry @ [facility] new referral opened for [facility] today The patient is a 25-year-old female presenting with a routine follow- up visit and evaluation of ongoing health issues. Status: - period post second childbir th. - Easier compared to prior. - ceased due to infant's r eflux issues. - Resumption of menstruation four months . Menstrual Irregularities: - Initial heavy menstruation resuming at 4-5 months . - Current periods are fondant puff maker. Iron Deficiency Anemia: - Anemia with low iron status. - Noted hemorrhage; contribut es to anemia. Plantar Wart: - Chronic plantar wart since first pregn gianfranco. - Treated with podiatric interventions a nd self-care. Acid Reflux (potential GERD): - Heartburn associated with calcium supp lement Myocore. - Trials of different administration ra es without improvement. Past Strep Throat Episode: - Antibiotic therapy with residual sympt oms. - Viral etiology suspected after assessm ent. PFSH Medical History Eczema Surgical History No pertinent past surgical history Family History Father HTN (hypertension) Social History Household Members: Spouse and Children Both parents involved: No Caregiver staying overnight: No Housing: House Are you a primary careers adviser to a significant other at home: Yes Do you presently have visiting nurse or other home services: No 75 years or older and lives alone: No Alcohol intake: never Patient Tobacco Use Status: Never used Tobacco e-Cigarette/Vaping Use: Never Used Second Hand Smoke Exposure: No service: No Current occupational status: employed Current occupation: dental hygenist Cognitive needs: No Hearing needs: No Vision needs: No Questionnaire PHQ-9 Over the last 2 weeks, how often have you been bothered by any of the following problems? 1. Little interest or pleasure in doing things: not at all 2. Feeling down, depressed, or hopeless: not at all 3. Trouble falling or staying asleep, or sleeping too much: not at all 4. Feeling tired or having little energy: not at all 5. Poor appetite or overeating: not at all 6. Feeling bad about yourself - or that you are a failure or have let yourself or your family down: not at all 7. Trouble concentrating on things, such as reading the newspaper or watching television: not at all 8. Moving or speaking so slowly that other people could have noticed. Or the opposite - being so fidgety or restless that you have been moving around a lot more than usual: not at all 9. Thoughts that you would be better off or of hurting yourself in some way: not at all Total score: 0 Depression Screening Interpretation: Negative Depression Screening Done: Yes Source: Developed by Drs. Gilbert Kelly, Radha Chauhan, Sudepe Blanco and colleagues, with an educational efren from [employer]. Thrive Questionnaire Date Thrive assessed: 03/01/25 I am a: Patient What is your living situation today?: I have a steady place to live Within the past 12 months, did the food you bought not last and you didn't have the money to get more?: Never true Within the past 12 months, did you worry whether your food would run out before you got money to buy more?: Never true Do you have trouble paying for medicines?: No Do you have trouble getting transportation to medical appointments?: No Do you have trouble paying your heating and electricity bill?: No Do you have trouble taking care of your child, family member or friend?: No Do you have trouble with day-to-day activities such as bathing, preparing meals, shopping, managing finances, etc.?: No Are you currently unemployed and looking for a job?: No Are you interested in more education?: No Please select the resources that you would like help with: None Currently or been in a relationship where the following occur: No concerns reported THRIVE Score: 0 AUDIT C Alcohol Use Questionnaire (AUDIT-C) 1. How often do you have a drink containing alcohol?: Never 3. How often do you have six or more drinks on one occasion?: Never Total Score: 0 KARELY-7 AMB Questionnaire KARELY-7 Date KARELY - 7 assessed: 03/02/25 Feeling nervous, anxious, or on edge: 0 = Not at all Not being able to stop or control worryin = Not at all Worrying too much about different things: 0 = Not at all Trouble relaxin = Not at all Being so restless that it is hard to sit still: 0 = Not at all Becoming easily annoyed or irritable: 0 = Not at all Feeling afraid as if something awful might happen: 0 = Not at all Total KARELY-7 score (0-4 normal; 5-9 mild; 10-14 moderate; 15-21 severe): 0 Source: Developed by Drs. Gilbert Kelly, Radha Chauhan, Sudeep Blanco and colleagues, with an educational efren from [employer]. Review of Systems Narrative Review of Systems - General: Reports good overall health. Denies depression, anxiety, bonding issues . - Gastrointestinal: Reports acid reflux symptoms when taking calcium supplement. - Musculoskeletal: Denies specifically, but relates past plantar wart issues and associated discomfort. - Hematologic: Reports anemia based on recent lab findings. - Gynecological: Reports resumed menstruation, with noted irregularities in flow. - Dermatological: Difficulty in acquiring dermatology follow-up due to insurance. Physical exam (Primary Care) Vital Signs: Last Vital Signs Temp 98.2 F 09/07/25 09:49 Pulse 73 09/07/25 09:49 BP 120/78 09/07/25 09:49 Pulse Ox 97 09/07/25 09:49 Oxygen Delivery Method Room Air 09/07/25 09:49 BMI result Body Mass Index 28.3 Tobacco/Smoking Status: Tobacco use Status Tobacco use date assessed 03/02/25 09/07/25 09:49 Patient Tobacco Use Status Never used Tobacco 09/07/25 09:49 e-Cigarette/Vaping Use Never Used 09/07/25 09:49 PHQ-9: PHQ-9 Score PHQ-9: Total score 0 09/07/25 09:55 Depression Screening Interpretation: Negative Thrive Assessment: Date of Thrive Assessment Date Thrive assessed 03/01/25 09/07/25 09:49 Currently or been in a relationship where the following occur: No concerns reported Narrative Physical Exam General: Well developed, well nourished, in no acute distress. Appears stated age. Head: Normocephalic, atraumatic. Eyes: Pupils are equal, round and reactive to light and accommodation. Conjunctivae are clear. Vision grossly normal. Lungs: Clear to auscultation bilaterally. No rales, rhonchi or wheeze noted. Good air flow in all aparicio. Heart: Regular rate and rhythm. No murmurs, click, rubs or gallops are noted. Abdomen: Bowel sounds present in all quadrants. The abdomen is soft, nontender, with no masses or organomegaly noted. No hernias are noted. Musculoskeletal: Joints are nontender, without swelling, redness, or effusions. Pulses: Peripheral pulses are equal and palpable bilaterally. Extremities: No clubbing, cyanosis nor edema is noted. Psych: Mood and affect appropriate. No depression or anxiety noted. Diagnostic results Results - Labs: Recent tests show anemia with low iron levels. Other parameters including kidney, liver, cholesterol, and thyroid functions are normal. - Tests: None discussed. - Diagnostics: None discussed. - Labs: Recent tests show anemia with low iron levels. Other parameters including kidney, liver, cholesterol, and thyroid functions are normal. - Tests: None discussed. - Diagnostics: None discussed. Results Reviewed Results Reviewed: Laboratory 09/05/25 Result Units Range Interpretation Provider Comments White Blood Count 4.4 X10*3/uL (4.8-10.8) Low Red Blood Count 4.75 X10*6/uL (4.20-5.50) Hemoglobin 12.8 g/dl (12.0-16.0) Hematocrit 39.6 % (37.0-47.0) Mean Corpuscular Volume 83.4 fL (80.0-98.0) Mean Corpuscular Hemoglobin 26.9 pg (27.0-33.0) Low Mean Corpuscular Hemoglobin Concent 32.3 g/dl (31.0-35.0) Red Cell Distribution Width 12.2 % (11.0-16.0) Platelet Count 193 X10*3/uL (160-400) Mean Platelet Volume 12.3 fL (9.4-12.3) Nucleated RBC Absolute Count (auto) 0.000 X10*3/uL (0.0-0.012) Nucleated Red Blood Cells % (auto) 0.0 /100WBC (0.0-0.2) Sodium Level 141 mmol/L (135-145) Potassium Level 3.9 mmol/L (3.3-5.1) Chloride Level 110 mmol/L (96-108) High Carbon Dioxide Level 26 mmol/L (22-29) Anion Gap 9 (12-20) Low Blood Urea Nitrogen 10 mg/dL (9-16) Creatinine 0.70 mg/dL (0.5-1.4) Estimated Creatinine Clearance Calc Not Reportable Estimat Glomerular Filtration Rate > 60 Random Glucose 94 mg/dL (60-115) Estimated Average Glucose 103 mg/dL Hemoglobin A1c Percent 5.2 % (<6.0) Calcium Level 9.0 mg/dL (8.4-10.2) Iron Level 54 mcg/dL (30-160) Total Iron Binding Capacity 295 mcg/dL (228-428) Percent Iron Saturation 18 % (15-50) Unsaturated Iron Binding 241 ug/dL Ferritin 6 ng/mL (10-122) Low Total Bilirubin 0.5 mg/dL (0.0-1.0) Aspartate Amino Transf (AST/SGOT) 23 U/L (5-31) Alanine Aminotransferase (ALT/SGPT) 15 U/L (0-31) Alkaline Phosphatase 62 U/L (39-117) Total Protein 7.0 g/dL (6.5-8.0) Albumin 4.3 g/dL (3.5-5.0) Triglycerides Level 49 mg/dL (<150) Cholesterol Level 156 mg/dL (<200) LDL Cholesterol, Calculated 76 mg/dL (<100) HDL Cholesterol 71 mg/dL (>40) Vitamin B12 Level 638 pg/mL (200-900) 25-Hydroxy Vitamin D Total 41.2 ng/mL (>30) Folate 13.7 ng/mL (> or = 4.0) Thyroid Stimulating Hormone (TSH) 0.58 uIU/mL (0.32-4.0) Urine Creatinine 153.54 mg/dL Urine Microalbumin 28.0 mg/L Urine Microalbumin/Creatinine Ratio 18.2 ug/mg cr (<30) Coding Level of Care Code Est Pt Level 4 (26250) Est Pt Prev Care >65y(43602) Diagnoses Iron deficiency anemia D50.9 Skin tag L91.8 Plantar wart of left foot B07.0 Blurred vision H53.8 Influenza vaccination declined Z28.21 Assessment & Plan Assessment & Plan (1) Iron deficiency anemia: Code(s): D50.9 - Iron deficiency anemia, unspecified Category: Medical (2) Skin tag: Code(s): L91.8 - Other hypertrophic disorders of the skin Category: Medical (3) Plantar wart of left foot: Code(s): B07.0 - Plantar wart Category: Medical (4) Blurred vision: Code(s): H53.8 - Other visual disturbances Category: Medical (5) Influenza vaccination declined: Onset Date: ~09/07/25 Code(s): Z28.21 - Immunization not carried out because of patient refusal Category: Medical Plan Discussion Notes I discussed with the patient her recovery, addressing her current anemia which is likely related to her recent childbirth and resumed menstruation. I recommended a multivitamin with iron to address the mild anemia and explained the potential benefits, and side effects such as changes in stool color. Possible dietary sources of iron were also discussed. For her plantar wart, previous podiatric treatment and ongoing self-care were reviewed, emphasizing her continued use of adhesive treatments. We also addressed her experiences with Myocore supplements causing acid reflux, exploring the timing of intake to manage symptoms better. Insurance issues, particularly concerning dermatology referrals, were explored and a plan to address them was established. Follow-up labs, including iron levels, will be rechecked at her physical in 6 months to evaluate progress. Patient was given time to ask questions. All questions were answered to their satisfaction. Assessment and Plan 1. Status - Monitor recovery. - Assess for psychological well-being. 2. Menstrual Irregularities - Track cycle regularity. Monitor hormonal changes. 3. Iron Deficiency Anemia - Multivitamin with iron recommended. Or Add Iron to current supplement but do not take both - Dietary changes discussed. 4. Plantar Wart - Adhesive treatment continuation. Cash Register Operator referral if needed. 7. Past Strep Throat Episode - Treatment completed. Resolved. Monitor white area on throat Patient Instructions - Take a multivitamin with iron once daily with food. - Eat more iron-rich foods like spinach and beans. - Use plantar wart adhesive treatment as directed. - Check with insurance and follow up on dermatology referral. - Take Myocore supplement before meals to reduce heartburn. - RTO 6 mo for CPE with labs sooner prn Consent Patient was informed and verbally consented to the use of an ambient scribe for clinic note documentation during this visit. Total time spent caring for the patient today was 30 minutes. This includes time spent before the visit reviewing the chart, time spent during the visit, and time spent after the visit on documentation, reviewing laboratory results, diagnostic imaging, medications, performing a medically necessary evaluation, counseling on diagnoses, care coordination, ordering appropriate tests, ordering appropriate medications, review of tests performed by other providers, reporting test results with the patient, communication with other healthcare providers. Orders: Orders Ferritin 6 Months D50.9 - Iron deficiency anemia, unspecified Complete Blood Count no Diff 6 Months D50.9 - Iron deficiency anemia, unspecified IRON PROFILE 6 Months D50.9 - Iron deficiency anemia, unspecified Referrals Dermatology Referral L91.8 - Other hypertrophic disorders of the skin Medications: New [id number] fumarate 15 mg iron 1 tab PO DAILY 90 tabs 2RF Discontinued amoxicillin Discontinued Reason: Patient Completed Course 500 mg PO Q12H 20 tabs 0RF
--- OUTSIDE RECORDS SUMMARY | 2025-09-07 11:02 | XMS_ITS | Clinical Summary ---
Author Organization [address] [facility] Address [address] [place] [address] Phone Care Team Providers Care Door Frame Builder Name Role Phone Physician, Pcp Unknown Primary Care Provider Mirtha vailable Allergies No known active allergies Medications No known medications Active Problems No known active problems Resolved Problems Problem Noted Date Diagnosed Date Resolved Date Venu Murcia' contraction 02/13/2025 0 02/15/2025 Encounters Date Type Department Care Team Description 07/04/2025 1:30 PM EDT Office Visit Orthopedic Surgery [facility] [address] [phone] Bran Romano DPRony Metatarsalgia of left foot (Primary Dx); Plantar warts 06/13/2025 1:45 PM EDT Consult Orthopedic Surgery [facility] [address] [id number] Bran Romano DPRony Metatarsalgia of left foot [...] your loved ones. For example, child care supervisor or elderly care for an older adult? [...] 9 Aditya Junito matthew MD Complications:None Delivery Location:[facility] ([facility]) Last Filed Vital [...] LAB MOLECULAR DIAGNOSTICS METHOD 01/19/2025 6:11 AM [facility] Chlamydia trachomatis PCR Negative Negative LAB MOLECULAR DIAGNOSTICS METHOD 01/19/2025 6:11 AM [facility] Swab Cervix uteri structure / Unknown 01/17/2025 01/17/2025 1:39 PM EST us Holley Ramírez MD LAB MICROBIOLOGY - GENER AL ORDERABLES Final Result Performing Organization Address [facility]/ZIP Co de Phone Number [facility] [address] [place] [address], [place] [phone] * Hepatitis C antibody (10/27/2024 10:27 AM EST) Hepatitis C Antibody Negative Negative LAB CHEMISTRY METHOD 10/27/2024 12:39 PM EST [facility] Blood Venous blood specimen / Unknown Venipuncture / Unknown 10/27/2024 10:27 AM EST 10/27/2024 11:13 AM EST us Brennan Yanez MD LAB BLOOD ORDERABLES Final Res ult Performing Organization Address [facility] de Phone Number [facility] [address] [place] [address], [place] [phone] * HIV 1,2 antibody, p24 antigen with reflex to differentiation (10/27/2024 10:27 AM EST) [facility] HIV Combo AB/AG Negative Negative LAB CHEMISTRY METHOD 10/27/2024 12:39 PM EST [facility] Blood Venous blood specimen / Unknown Venipuncture / Unknown 10/27/2024 10:27 AM EST 10/27/2024 11:13 AM EST Narrative [facility] - 10/27/2024 12:39 PM EST [...] ORDERABLES Final Res ult Performing Organization Address City/[facility]/ZIP Co de Phone Number [facility] [address] [place] [address], [place] [phone] from Last 3 Months or Most Recently Relevant to Health Maintenance Insurance [facility] MEDICAID - [place] Advance Directives [...] currently active code status orders. Care Teams Door Frame Builder Relationship Specialty Start Date End Date Physician, Pcp Unknown PCP - General 10/27/24
--- OUTSIDE RECORDS SUMMARY | 2025-09-07 11:02 | XMS_ITS | Encounter Summary ---
Author Organization [facility] Address [address] [place] [address] Care Team Providers Care Radiology Receptionist Name Role Phone Physician, Pcp Unknown Primary Care Provider Mirtha vailable Encounter Details Date Type Department Care Team (Latest Contact Info) Description 01/17/2025 Lab Requisition [facility] Lab [address] [facility] [place] [address] Holley Ramírez MD [address] [phone] Encounter for screening for Streptococcus [...] MOLECULAR DIAGNOSTICS METHOD 01/19/2025 6:11 AM EST [facility] Chlamydia trachomatis PCR Negative Negative LAB MOLECULAR DIAGNOSTICS METHOD 01/19/2025 6:11 AM EST [facility] Swab Cervix uteri structure / Unknown 01/17/2025 01/17/2025 1:39 PM EST Holley Ramírez MD LAB MICROBIOLOGY - GENER AL ORDERABLES Final Result Performing Organization Address City/[facility]/ZIP Co de Phone Number [facility] [address] [place] [address], [place] [phone] * (ABNORMAL) Strep B molecular study (01/17/2025 12:00 AM EST) Grp B Strep PCR Detected (A) Not Detected LAB MICROBIOLOGY METHOD 01/19/2025 8:40 AM EST [facility] Swab Pooled specimen from vaginal introitus and rectal swab / Unknown 01/17/2025 01/17/2025 1:39 PM EST Narrative [facility] - 01/19/2025 8:40 AM EST Group B Streptococcus Susceptibility testing is not routinely performed since this organism is predictably sensitive to Penicillin. Susceptibility testing should be performed for Penicillin Allergic women at HIGH RISK for Anaphylaxis. Should this patient require testing, Please contact the Microbiology Department at [phone] within 7 days of receiving this report to request susceptibility. us Hollye Ramírez MD LAB BLOOD ORDERABLES Fin al Result [facility] [address] [place] [address], [place] [phone] documented in this encounter Visit Diagnoses Diagnosis Encounter for screening for Streptococcus B Encounter for screening for infections with a predominantly sexual mode of transmission documented in this encounter Care Teams Radiology Receptionist Relationship Specialty Start Date End Date Physician, Pcp Unknown PCP - General 10/27/24 documented as of this encounter
== END 2025-09-07 10:18 | disposition home or self-care (01) ==
LOC: HO.HMCFM 09:48
PROVIDERS: PCP Nurse Practitioner Family; Visit Provider Nurse Practitioner Family
DX: D50.9 Iron deficiency anemia, unspecified (principal); L91.8 Other hypertrophic disorders of the skin; B07.0 Plantar wart; H53.8 Other visual disturbances; Z28.21 Immunization not carried out because of patient refusal

== ENCOUNTER → 2025-09-07 09:47 | Outpatient (BNVA) | payer OTHER, SELFPAY | PROVIDERS: PCP Nurse Practitioner Family; Visit Provider Nurse Practitioner Family | DX: B07.0 Plantar wart (principal); N92.6 Irregular menstruation, unspecified; K21.9 Gastro-esophageal reflux disease without esophagitis; D50.9 Iron deficiency anemia, unspecified; L91.8 Other hypertrophic disorders of the skin; H53.8 Other visual disturbances; Z28.21 Immunization not carried out because of patient refusal | CPT/HCPCS: 99212 ==